=== PATIENT | male | born 2000 | race Caucasian/White ===

== ENCOUNTER 2019-09-30 12:54 | Inpatient (IN) | payer OTHER ==
[2019-09-30 15:57] VITALS: BMI 22.7
--- NOTE | 2019-09-30 17:57 | HP ---
CIWA Score Nausea/Vomitin Muscle Tremors: 3 Anxiety: 3 Agitation: 3 Paroxysmal Sweats: 1-Minimal Palms Moist Orientation: 0-Oriented Tacttile Disturbances: 1-Very Mild Itch/Numbness Auditory Disturbances: 0-None Visual Disturbances: 0-None Headache: 2-Mild CIWA-Ar Total Score: 15 - Admission Criteria [facility] Guidelines: Admission for Medically Managed Detox: Requires at least one of the followin. CIWA greater than 12 2. Seizures within the past 24 hours 3. Delirium tremens within the past 24 hours 4. Hallucinations within the past 24 hours 5. Acute intervention needed for co occurring medical disorder 6. Acute intervention needed for co occurring psychiatric disorder 7. Severe withdrawal that cannot be handled at a lower level of care (continued vomiting, continued diarrhea, abnormal vital signs) requiring intravenous medication and/or fluids 8. Admitting History and Physical - Admission Chief Complaint: i need help to come in for detox from xanax,also heroin abused, mmtp. 60 mgs/day last medicated to day History of Present Illness: this 19 years old male with xanax dependence,heroin abused,mmtp 60 mgs/day, state left bottle to take home with his mother, multiple admissions in detox,last detox 2019 history of seizure history of syncope History Source: Patient Limitations to Obtaining History: No Limitations - Past Medical History Psych: Yes: Addictions - Smoking History Smoking history: Current every day smoker Have you smoked in the past 12 months: Yes Aproximately how many cigarettes per day: 20 - Alcohol/Substance Use Hx Alcohol Use: No History of Substance Use: reports: Heroin, Marijuana, Tranquilizers Date of Last Use: 09/29/19 - Social History Usual Living Arrangement: Yes: With Parent ADL: Support Services Occupation: unemployed History of Recent Travel: No Admission ROS S - HPI Chief Complaint: i need help to stop using xanax,heroin abused,cannabis dependence,mmtp 60 mgs/ day, last medicated today,no bottle to take home,stated left it with his mother seizure last 09/14 1 moth ago syncope last week nicotine dependence weight loss nicotine dependence unemployed,last detox 2018 in the [facility] would like to go to rehab Allergies/Adverse Reactions: Allergies Allergy/AdvReac Type Severity Reaction Status Date / Time No Known Allergies Allergy Verified 09/30/19 15:52 History of Present Illness: please see chief complaint Exam Limitations: No Limitations - Ebola screening Have you traveled outside of the country in the last 21 days: No Have you had contact with anyone from an Ebola affected area: No Do you have a fever: No - Review of Systems Constitutional: Chills, Loss of Appetite, Malaise, Night Sweats, Changes in sleep, Weakness, Unintentional Wgt. Loss EENT: reports: Tearing, Nose Congestion Respiratory: reports: No Symptoms reported Cardiac: reports: No Symptoms Reported GI: reports: Nausea, Poor Appetite, Poor Fluid Intake : reports: No Symptoms Reported Musculoskeletal: reports: Back Pain, Muscle Pain Integumentary: reports: Dryness Neuro: reports: Headache, Tremors Endocrine: reports: No Symptoms Reported Hematology: reports: No Symptoms Reported Psychiatric: reports: No Sypmtoms Reported, Judgement Intact, Mood/Affect Appropiate, Orientated x3 Other Systems: Reviewed and Negative Patient History - Patient Medical History Hx Anemia: No Hx Asthma: No Hx Chronic Obstructive Pulmonary Disease (COPD): No Hx Cancer: No Hx Cardiac Disorders: No Hx Congestive Heart Failure: No Hx Hypertension: No Hx Hypercholesterolemia: No Hx Pacemaker: No HX Cerebrovascular Accident: No Hx Seizures: Yes (last 09/14) Hx Dementia: No Hx Diabetes: No Hx Gastrointestinal Disorders: No Hx Liver Disease: No Hx Genitourinary Disorders: No Hx Sexually Transmitted Disorders: No Hx Renal Disease (ESRD): No Hx Thyroid Disease: No Hx Human Immunodeficiency Virus (HIV): No (last 07/15 negative) Hx Hepatitis C: No Hx Depression: Yes (anxiety,insomnia) Hx Suicide Attempt: No Hx Bipolar Disorder: No Hx Schizophrenia: No Other Medical History: no suicidal,no homicidal - Patient Surgical History Past Surgical History: No - PPD History Previous Implant?: Yes Documented Results: Negative w/o proof Implanted On Prior [facility] Admission?: No PPD to be Administered?: Yes - Smoking Cessation Smoking history: Current every day smoker Have you smoked in the past 12 months: Yes Aproximately how many cigarettes per day: 20 Hx Chewing Tobacco Use: No Initiated information on smoking cessation: Yes 'Breaking Loose' booklet given: 09/30/19 - Substance & Tx. History Hx Alcohol Use: No Hx Substance Use: Yes Substance Use Type: Heroin, Marijuana, Tranquilizers Hx Substance Use Treatment: Yes (2019 in [facility]) - Substances abused Heroin Substance route: Inhalation Frequency: Daily Amount used: 30bags Age of first use: 16 Date of last use: 09/29/19 Alprazolam (Xanax) Substance route: Oral Frequency: Daily Amount used: 8 mgs Age of first use: 14 Date of last use: 09/29/19 Marijuana/Hashish Substance route: Smoking Frequency: Daily Amount used: 40$ Age of first use: 9 Date of last use: 09/30/19 Admission Physical Exam [facility] - Vital Signs Vital Signs: Vital Signs - 24 hr 09/30/19 15:53 Temperature 98.0 F Pulse Rate 64 Respiratory 14 Rate Blood Pressure 94/50 L - Physical General Appearance: Yes: Moderate Distress, Tremorous, Irritable, Sweating, Anxious HEENTM: Yes: Normal ENT Inspection, CECE, Pharynx Normal Respiratory: Yes: Lungs Clear, Normal Breath Sounds, No Respiratory Distress Neck: Yes: Within Normal Limits, Supple, Trachea in good position Breast: Yes: Within Normal Limits Cardiology: Yes: Within Normal Limits, Regular Rhythm, Regular Rate, S1, S2 Abdominal: Yes: Normal Bowel Sounds, Non Tender, Flat, Soft Genitourinary: Yes: Within Normal Limits Back: Yes: Muscle Spasm Musculoskeletal: Yes: Back pain, Muscle Pain Extremities: Yes: Tremors Neurological: Yes: experience design director II-XII NML intact, Fully Oriented, Alert, Motor Strength 5/5 Integumentary: Yes: Dry Lymphatic: Yes: Within Normal Limits - Diagnostic (1) Uncomplicated sedative, hypnotic or anxiolytic withdrawal Current Visit: Yes Status: Acute (2) Heroin abuse Current Visit: Yes Status: Acute (3) Methadone maintenance therapy patient Current Visit: Yes Status: Acute (4) Nicotine dependence Current Visit: Yes Status: Acute (5) Dehydration Current Visit: Yes Status: Acute (6) Weight loss Current Visit: Yes Status: Acute (7) Seizure concurrent with and due to anxiolytic withdrawal Current Visit: Yes Status: Acute (8) Insomnia secondary to depression with anxiety Current Visit: Yes Status: Acute Cleared for Admission [facility] - Detox or Rehab [facility] Level of Care: Medically Managed Detox Regimen/Protocol: Valium Breathalyzer - Breathalyzer Breathalyzer: 0 Urine Drug Screen - Test Device Lot number: [id number] Expiration date: 09/30/21 - Control Is test valid?: Yes - Results Drug screen NEGATIVE: No Urine drug screen results: THC-Marijuana, AMP-Amphetamines, FEN-Fentanyl, MOP- Opiates, MTD-Methadone, BZO-Benzodiazepines Inpatient Rehab Admission - Rehab Decision to Admit Inpatient rehab admission?: No
[2019-09-30] MEDS ORDERED: NICOTINE POLACRILEX 2 MG GUM BUC PRN (18:18)
[2019-09-30] MEDS ORDERED: IBUPROFEN 400 MG TABLET (FP) PO PRN (18:18)
[2019-09-30] MEDS ORDERED: MAG HYDROX/AL HYDROX/SIMETH 30 ML UNIT-DOSE CUP PO PRN (18:18)
[2019-09-30] MEDS ORDERED: ACETAMINOPHEN 325 MG TABLET (FP) PO PRN ×2 (18:18)
[2019-09-30] MEDS ORDERED: hydrOXYzine PAMOATE 25 MG CAPSULE (FP) PO PRN (18:18)
[2019-09-30] MEDS ORDERED: MENTHOL/PHENOL 1 EACH UD MM PRN (18:18)
[2019-09-30] MEDS ORDERED: BISMUTH SUBSALICYLATE 524 MG/30 ML UD PO PRN (18:18)
[2019-09-30] MEDS ORDERED: MAGNESIUM HYDROX 2400MG/30ML ORAL SUSPENSION 30 ML CUP PO PRN (18:18)
[2019-09-30] MEDS ORDERED: MAGNESIUM CITRATE 300 ML BOTTLE PO PRN (18:18)
--- NOTE | 2019-09-30 19:06 | PN ---
S Progress Note Note: patient has bottle to take home of methadone 60 mgs for 10/01/09, will order methadone dose for tomorrow
[2019-09-30] MEDS: NICOTINE 21 MG/24 HOURS TOPICAL PATCH TD SCH (19:47)
[2019-09-30] MEDS: THIAMINE HCL 100 MG TABLET (FP) PO SCH (22:09)
[2019-09-30] MEDS: diazePAM 5 MG TABLET PO SCH (22:09)
[2019-09-30] MEDS: MELATONIN 5 MG TABLETS PO PRN (22:10)
[2019-09-30] MEDS: METHOCARBAMOL 500 MG TABLET PO PRN (22:11)
[2019-10-01] MEDS: diazePAM 5 MG TABLET PO SCH ×3 (05:31→22:07)
[2019-10-01] MEDS ORDERED: METHADONE HCL 10 MG TABLET PO ONE ×2 (06:00)
[2019-10-01] MEDS: NICOTINE 21 MG/24 HOURS TOPICAL PATCH TD SCH (10:10)
[2019-10-01] MEDS: PRENATAL VITAMINS W/ FOLIC ACID TABLET (FP) PO SCH (10:10)
[2019-10-01] MEDS: diazePAM 5 MG TABLET PO PRN (10:11)
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
--- NOTE | 2019-10-01 13:44 | PN ---
[facility] CIWA - CIWA Score Nausea/Vomitin-Mild Nausea/No Vomiting Muscle Tremors: 2 Anxiety: 3 Agitation: 2 Paroxysmal Sweats: 2 Orientation: 1-Uncertain about Date Tacttile Disturbances: 0-None Auditory Disturbances: 0-None Visual Disturbances: 0-None Headache: 0-None Present CIWA-Ar Total Score: 11 S Progress Note (SOAP) Subjective: 19 years old male admitted on 09/30/19 for benzo withdrawal sx management treated with valium detoxd regimen feeling ok today seen by psychiatrist social with peers in day room Objective: 10/01/19 13:43 Vital Signs Temperature 96.4 F L 10/01/19 13:17 Pulse Rate 49 L 10/01/19 13:17 Respiratory Rate 18 10/01/19 13:17 Blood Pressure 107/75 10/01/19 13:17 O2 Sat by Pulse Oximetry (%) 10/01/19 13:43 lab pending Assessment: 10/01/19 13:43 benzo withdrawal Plan: valium regimen
[2019-10-01 13:51] LABS: HEMATOCRIT 37.9 % (35.4-49); HEMOGLOBIN 12.8 GM/dL (11.7-16.9); MCH 32.1 pg (25.7-33.7); MCHC 33.8 g/dl (32.0-35.9); MEAN CELL VOLUME 94.9 fl (80-96); MEAN PLT VOLUME 9.2 fl (7.5-11.1); PLATELET COUNT 224 K/MM3 (134-434); RDW 13.9 % (11.9-15.9); WHITE BLOOD COUNT 7.4 K/mm3 (4.0-10.0)
[2019-10-01 14:01] LABS: ALBUMIN 3.4 g/dl (3.4-5.0); BILIRUBIN,TOTAL 0.2 mg/dL (0.2-1); BLOOD UREA NITROGEN 16.6 mg/dL (7-18); CALCIUM 8.5 mg/dL (8.5-10.1); TOT PROT 5.8 g/dl (6.4-8.2)
--- NOTE | 2019-10-01 17:09 | EKG ---
Test Reason : Blood Pressure : / mmHG Vent. Rate : 044 BPM Atrial Rate : 044 BPM P-R Int : 140 ms QRS Dur : 080 ms QT Int : 490 ms P-R-T Axes : 061 025 042 degrees QTc Int : 418 ms MARKED SINUS BRADYCARDIA POSSIBLE LEFT ATRIAL ENLARGEMENT ABNORMAL ECG NO PREVIOUS ECGS AVAILABLE Confirmed by TASHA ASCENCIO MD ([id number]) on 10/01/2019 5:08:47 PM Referred By: Confirmed By:TASHA ASCENCIO MD
[2019-10-01] MEDS: THIAMINE HCL 100 MG TABLET (FP) PO SCH (22:07)
[2019-10-01] MEDS: MELATONIN 5 MG TABLETS PO PRN (22:07)
[2019-10-01] MEDS: METHOCARBAMOL 500 MG TABLET PO PRN (22:09)
[2019-10-02] MEDS: diazePAM 5 MG TABLET PO SCH ×2 (05:49→17:32)
--- NOTE | 2019-10-02 09:07 | PN ---
S CIWA - CIWA Score Nausea/Vomitin-No Nausea/No Vomiting Muscle Tremors: 2 Anxiety: 2 Agitation: 2 Paroxysmal Sweats: 1-Minimal Palms Moist Orientation: 0-Oriented Tacttile Disturbances: 0-None Auditory Disturbances: 0-None Visual Disturbances: 0-None Headache: 1-Very Mild CIWA-Ar Total Score: 8 [facility] Progress Note (SOAP) Subjective: 19 years old male admitted on 09/30/19 for benzo withdrawal sx management treating with valium detox regimen feeling better today slept through the night ate breakfast social with peers in day room Objective: 10/02/19 09:07 Vital Signs Temperature 97.9 F 10/02/19 06:34 Pulse Rate 55 L 10/02/19 06:34 Respiratory Rate 18 10/02/19 06:34 Blood Pressure 101/51 L 10/02/19 06:34 O2 Sat by Pulse Oximetry (%) Laboratory Last Values WBC 7.4 K/mm3 (4.0-10.0) 10/01/19 07:30 RBC 4.00 M/mm3 (4.00-5.60) 10/01/19 07:30 Hgb 12.8 GM/dL (11.7-16.9) 10/01/19 07:30 Hct 37.9 % (35.4-49) 10/01/19 07:30 MCV 94.9 fl (80-96) 10/01/19 07:30 MCH 32.1 pg (25.7-33.7) 10/01/19 07:30 MCHC 33.8 g/dl (32.0-35.9) 10/01/19 07:30 RDW 13.9 % (11.9-15.9) 10/01/19 07:30 Plt Count 224 K/MM3 (134-434) 10/01/19 07:30 MPV 9.2 fl (7.5-11.1) 10/01/19 07:30 Sodium 142 mmol/L (136-145) 10/01/19 07:30 Potassium 4.0 mmol/L (3.5-5.1) 10/01/19 07:30 Chloride 107 mmol/L (98-107) 10/01/19 07:30 Carbon Dioxide 30 mmol/L (21-32) 01/05/20 07:30 Anion Gap 4 MMOL/L (8-16) L 10/01/19 07:30 BUN 16.6 mg/dL (7-18) 10/01/19 07:30 Creatinine 1.0 mg/dL (0.55-1.3) 10/01/19 07:30 Est GFR (CKD-EPI)AfAm 124.14 10/01/19 07:30 Est GFR (CKD-EPI)NonAf 107.11 10/01/19 07:30 Random Glucose 89 mg/dL (74-106) 10/01/19 07:30 Calcium 8.5 mg/dL (8.5-10.1) 10/01/19 07:30 Total Bilirubin 0.2 mg/dL (0.2-1) 10/01/19 07:30 AST 17 U/L (15-37) 10/01/19 07:30 ALT 18 U/L (13-61) 10/01/19 07:30 Alkaline Phosphatase 85 U/L (45-117) 10/01/19 07:30 Total Protein 5.8 g/dl (6.4-8.2) L 10/01/19 07:30 Albumin 3.4 g/dl (3.4-5.0) 10/01/19 07:30 RPR Titer Nonreactive (NONREACTIVE) 10/01/19 07:30 lab noted Assessment: 10/02/19 09:07 benzo withdrawal methadone maintenance program 60mg po daily waiting for verification Plan: valium regimen
[2019-10-02] MEDS ORDERED: METHADONE HCL 10 MG TABLET PO ONE (10:25)
[2019-10-02] MEDS: PRENATAL VITAMINS W/ FOLIC ACID TABLET (FP) PO SCH (10:34)
[2019-10-02] MEDS: NICOTINE 21 MG/24 HOURS TOPICAL PATCH TD SCH (10:34)
[2019-10-02] MEDS ORDERED: METHADONE 40 MG, METHADONE 20 MG PO ONE (10:45)
[2019-10-02] MEDS ORDERED: METHADONE HCL 10 MG TABLET ONE (10:59)
[2019-10-02] MEDS ORDERED: METHADONE HCL 40 MG DISPERSABLE TABLET ONE (11:00)
[2019-10-02 15:08] LABS: PH,URINE 8.5 (5.0-8.0); URINE APPEARANCE CLEAR; URINE BILIRUBIN NEGATIVE (NEGATIVE); URINE COLOR YELLOW; URINE GLUCOSE (UA) NEGATIVE (NEGATIVE); URINE KETONE NEGATIVE (NEGATIVE); URINE LEUK ESTERASE NEGATIVE (NEGATIVE); URINE NITRITE NEGATIVE (NEGATIVE); URINE PROTEIN NEGATIVE (NEGATIVE); URINE UROBILINOGEN 0.2 mg/dL (0.2-1.0)
[2019-10-02] MEDS: THIAMINE HCL 100 MG TABLET (FP) PO SCH (22:13)
[2019-10-02] MEDS: METHOCARBAMOL 500 MG TABLET PO PRN (22:14)
[2019-10-02] MEDS: diazePAM 5 MG TABLET PO PRN (22:16)
[2019-10-02] MEDS: MELATONIN 5 MG TABLETS PO PRN (22:17)
[2019-10-03] MEDS ORDERED: METHADONE HCL 10 MG TABLET ONE (04:30)
[2019-10-03] MEDS ORDERED: METHADONE HCL 40 MG DISPERSABLE TABLET ONE (04:30)
[2019-10-03] MEDS ORDERED: METHADONE 40 MG, METHADONE 20 MG PO SCH (06:00)
[2019-10-03] MEDS ORDERED: METHADONE HCL 10 MG TABLET PO SCH (06:00)
[2019-10-03] MEDS ORDERED: diazePAM 5 MG TABLET PO ONE (06:00)
[2019-10-03 09:38] VITALS: BP 125/80; PULSE 65; TEMP 97
--- NOTE | 2019-10-03 14:29 | DS ---
[facility] Detox Discharge Summary Admission Date: 09/30/19 Discharge Date: 10/03/19 - History Present History: Sedative Dependence Additional Comments: 19 years old male admitted on 09/30/19 for benzo withdrawal sx management treated with valium detox regimen patient tolerated well alert oriented x 3 seen by psychiatrist no medical intervention at this time due to bradycardia cardiac s1s2 regular low rate and rhythm ekg indicates possible left atrial enlargement respiratory clear lungs bilaterally on auscultation extremities full range of motion patient had phone interviewed with [facility] today and been accepted to inpatient chemical rehab today patient insists to go home and takes care of "things" the nurse counselor and provider strongly encourage the patient stay on recovery process for behavior and psychosocial therapies patient is considering to go to methadone program for medical and mental issues - Physical Exam Results Vital Signs: Vital Signs Temperature 97.0 F L 10/03/19 09:37 Pulse Rate 65 10/03/19 09:37 Respiratory Rate 18 10/03/19 09:37 Blood Pressure 125/80 10/03/19 09:37 O2 Sat by Pulse Oximetry (%) Pertinent Admission Physical Exam Findings: benzo withdrawal Laboratory Last Values WBC 7.4 K/mm3 (4.0-10.0) 10/01/19 07:30 RBC 4.00 M/mm3 (4.00-5.60) 10/01/19 07:30 Hgb 12.8 GM/dL (11.7-16.9) 10/01/19 07:30 Hct 37.9 % (35.4-49) 10/01/19 07:30 MCV 94.9 fl (80-96) 10/01/19 07:30 MCH 32.1 pg (25.7-33.7) 10/01/19 07:30 MCHC 33.8 g/dl (32.0-35.9) 10/01/19 07:30 RDW 13.9 % (11.9-15.9) 10/01/19 07:30 Plt Count 224 K/MM3 (134-434) 10/01/19 07:30 MPV 9.2 fl (7.5-11.1) 10/01/19 07:30 Sodium 142 mmol/L (136-145) 10/01/19 07:30 Potassium 4.0 mmol/L (3.5-5.1) 10/01/19 07:30 Chloride 107 mmol/L (98-107) 10/01/19 07:30 Carbon Dioxide 30 mmol/L (21-32) 10/01/19 07:30 Anion Gap 4 MMOL/L (8-16) L 10/01/19 07:30 BUN 16.6 mg/dL (7-18) 10/01/19 07:30 Creatinine 1.0 mg/dL (0.55-1.3) 10/01/19 07:30 Est GFR (CKD-EPI)AfAm 124.14 10/01/19 07:30 Est GFR (CKD-EPI)NonAf 107.11 10/01/19 07:30 Random Glucose 89 mg/dL (74-106) 10/01/19 07:30 Calcium 8.5 mg/dL (8.5-10.1) 10/01/19 07:30 Total Bilirubin 0.2 mg/dL (0.2-1) 10/01/19 07:30 AST 17 U/L (15-37) 10/01/19 07:30 ALT 18 U/L (13-61) 10/01/19 07:30 Alkaline Phosphatase 85 U/L (45-117) 10/01/19 07:30 Total Protein 5.8 g/dl (6.4-8.2) L 10/01/19 07:30 Albumin 3.4 g/dl (3.4-5.0) 10/01/19 07:30 Urine Color Yellow 10/02/19 10:00 Urine Appearance Clear 10/02/19 10:00 Urine pH 8.5 (5.0-8.0) H 10/02/19 10:00 Ur Specific [place] 1.015 (1.010-1.035) 10/02/19 10:00 Urine Protein Negative (NEGATIVE) 10/02/19 10:00 Urine Glucose (UA) Negative (NEGATIVE) 10/02/19 10:00 Urine Ketones Negative (NEGATIVE) 10/02/19 10:00 Urine Blood Negative (NEGATIVE) 10/02/19 10:00 Urine Nitrite Negative (NEGATIVE) 10/02/19 10:00 Urine Bilirubin Negative (NEGATIVE) 10/02/19 10:00 Urine Urobilinogen 0.2 mg/dL (0.2-1.0) 10/02/19 10:00 Ur Leukocyte Esterase Negative (NEGATIVE) 10/02/19 10:00 RPR Titer Nonreactive (NONREACTIVE) 10/01/19 07:30 lab noted - Treatment Hospital Course: Detox Protocol Followed, Detoxed Safely, Responded well, Discharged Condition Good, Rehab Referral Accepted Patient has Accepted a Re[facility] Ref[facility] - Medication Discharge Medications: Ambulatory Orders NK [No Known Home Medication] 09/30/19 - Diagnosis (1) Methadone maintenance therapy patient Status: Chronic (2) Nicotine dependence Status: Acute Qualifiers: Nicotine product type: cigarettes Substance use status: in withdrawal Qualified Code(s): F17.213 - Nicotine dependence, cigarettes, with withdrawal (3) Uncomplicated sedative, hypnotic or anxiolytic withdrawal Status: Acute (4) Weight loss Status: Acute - AMA Did Patient Leave Against Medical Advice: No CIWA Score - CIWA Score Nausea/Vomitin-No Nausea/No Vomiting Muscle Tremors: 1-None Visible, but [place] Anxiety: 1-Mildly Anxious Agitation: 1-Slight > Activity Paroxysmal Sweats: No Perspiration Orientation: 0-Oriented Tacttile Disturbances: 0-None Auditory Disturbances: 0-None Visual Disturbances: 0-None Headache: 1-Very Mild CIWA-Ar Total Score: 4
== END 2019-10-03 10:56 | disposition home or self-care (01) | DRG 773 ==
LOC: YASAS 12:54 → Y3N 18:50
PROVIDERS: ADMIT Allergy & Immunology; ATTEND Allergy & Immunology
PROC: HZ2ZZZZ Detoxification Services for Substance Abuse Treatment (ICD-10-PCS; principal; 2019-09-30)
DX: F13.230 Sedative, hypnotic or anxiolytic dependence with withdrawal, uncomplicated (principal); F11.20 Opioid dependence, uncomplicated; F17.213 Nicotine dependence, cigarettes, with withdrawal; F41.9 Anxiety disorder, unspecified; F43.10 Post-traumatic stress disorder, unspecified; F19.282 Other psychoactive substance dependence with psychoactive substance-induced sleep disorder; F51.05 Insomnia due to other mental disorder; R63.4 Abnormal weight loss; E86.0 Dehydration; Z86.69 Personal history of other diseases of the nervous system and sense organs; Z56.0 Unemployment, unspecified
CPT/HCPCS: 36415; 80053; 81003; 85027; 86593; 93005; 93010